=== PATIENT | female | born 1995 | race American Indian/Alaskan Native ===

== ENCOUNTER 2017-03-29 08:10 | Outpatient (CLI) | payer MEDICAID ==
[2017-03-29 08:28] VITALS: BP 107/69
[2017-03-29] MEDS ORDERED: LACTATED RINGERS 500 ML IV ONE (08:36)
[2017-03-29] MEDS ORDERED: BRETHINE SUB-Q SCH (09:00)
[2017-03-29 09:03] LABS: Urine Drugs of Abuse Note Disclamer
[2017-03-29 09:28] LABS: Bilirubin,Urine NEG (Negative); Blood,Urine NEG (Negative); Ketones,Urine 20 mg/dL (Negative); Leukocyte Esterase,Urine NEG (Negative); Mucus,Urine FEW /HPF; Nitrite,Urine NEG (Negative); Protein,Urine <15 mg/dL mg/dL (Negative); Urobilinogen,Urine < 2.0 mg/dL (<2.0)
[2017-03-29] MEDS ORDERED: NORCO 5/325 PO PRN (09:51)
[2017-03-29] MEDS ORDERED: PEPCID IV SCH (10:00)
[2017-03-29] MEDS ORDERED: LACTATED RINGERS 1,000 ML IV SCH (11:00)
== END 2017-03-29 11:13 | disposition home or self-care (01) ==
LOC: TRG 08:10
PROVIDERS: ATTEND Obstetrics & Gynecology
DX: O47.03 False labor before 37 completed weeks of gestation, third trimester (principal); Z3A.31 31 weeks gestation of pregnancy
CPT/HCPCS: 59025; 80307; 81001; 96360; 96361; 96374; J7120

== ENCOUNTER 2017-09-26 22:51 | Emergency (ER) | payer MEDICAID ==
[2017-09-27 00:03] LABS: Alanine Aminotransferase 10 units/L (7-56); Albumin 4.4 g/dL (3.9-5); Albumin/Globulin Ratio 1.8 %; Alkaline Phosphatase 67 units/L (35-129); Anion Gap 19 mmol/L; BUN/Creatinine Ratio 27; Bilirubin,Total < 0.20 mg/dL (0.1-1.2); Blood Urea Nitrogen 19 mg/dL (7-17); Calcium 9.5 mg/dL (8.4-10.2); Carbon Dioxide 25 mmol/L (22-30); Chloride 100.9 mmol/L (98-107); Glucose 82 mg/dL (65-100); Potassium 4.5 mmol/L (3.6-5.0); Sodium 140 mmol/L (137-145); Total Protein 6.9 g/dL (6.3-8.2)
[2017-09-27 00:13] LABS: Urine Drugs of Abuse Note Disclamer
[2017-09-27 00:55] LABS: Eosinophils % (Auto) 4.8 % (0.0-4.3); Mean Corpuscular HGB Conc 30 % (30-34); Platelet Count 384 K/mm3 (140-440); Red Blood Count 4.69 M/mm3 (3.65-5.03); Red Cell Distribution Width 17.8 % (13.2-15.2); White Blood Count 9.5 K/mm3 (4.5-11.0)
[2017-09-27 00:57] LABS: Hemoglobin 9.3 gm/dl (10.1-14.3)
[2017-09-27 00:58] LABS: Hematocrit 31.1 % (30.3-42.9); Mean Corpuscular Hemoglobin 20 pg (28-32); Mean Corpuscular Volume 66 fl (79-97)
[2017-09-27 01:23] LABS: Bacteria,Urine 2+ /HPF (Negative); Bilirubin,Urine NEG (Negative); Blood,Urine LG (Negative); Ketones,Urine NEG (Negative); Leukocyte Esterase,Urine MOD (Negative); Mucus,Urine 3+ /HPF; Nitrite,Urine POS (Negative); Urobilinogen,Urine < 2.0 mg/dL (<2.0)
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
[2017-09-27] MEDS ORDERED: MACROBID PO ONE (06:05)
[2017-09-27] MEDS ORDERED: NACL 0.9% 1000 ML 1,000 ML IV ONE (06:05)
[2017-09-27] MEDS ORDERED: XYLOCAINE 1% MPF 5 mL INFILTRATI ONE (06:05)
[2017-09-27] MEDS ORDERED: ROCEPHIN 500 MG in NACL 0.9% 50 ML IV ONE (07:00)
--- NOTE | 2017-09-27 11:43 | Consultation ---
History of Present Illness - Reason for Consult Consult date: 09/27/17 Reason for consult: Mental Health Evaluation Requesting physician: AYALA KINGSLEY - Chief Complaint Chief complaint: "I was just talking" - History of Present Psychiatric Illness 22 yo female who gave in May 2017 here for evaluation of post- depression. Today patient is calm and cooperative during the assessment. She stated that she did make a statement about throwing her baby away. She stated that she was "upset" when she made that statement. She stated that she told her mother that over a month ago, not recently. She stated that she been dealing with stress prior to the of her child (May 2017). She stated that life stressors (relationship issues, lack of money, and being unemployed) has made her life "hell." She stated that her child resides with her mother because she needs to get on her "feet." She did state that she don't know what to do when the child cries, which stresses her out. She stated being overwhelmed with life since the age of 21. She denies SI/HI's and AVH's. She denies sleep disturbance and a poor appetite. She rate her depression 6/10, with 10 being the worse. She admitted to smoking marijuana in the past, but denies alcohol consumption (etoh) . Medications and Allergies Allergies Allergy/AdvReac Type Severity Reaction Status Date / Time No Known Allergies Allergy Verified 08/05/15 20:45 Home Medications Medication Instructions Recorded Confirmed Last Taken Type No Known Home Medications [No 09/26/17 09/26/17 Unknown History Reported Home Medications] Past psychiatric history - Past Medical History Past Medical History: No medical history, other Past Surgical History: No surgical history - past Psychiatric treatment and history psychiatric treatment history: Denies a psy hx and fam psy hx. Mental Status Exam - Vital signs Last Vital Signs Temp 97.9 F 09/26/17 23:59 Pulse 82 09/26/17 23:59 Resp 18 09/26/17 23:59 BP 113/67 09/26/17 23:59 Pulse Ox 100 09/26/17 23:59 - Exam Narrative exam: MSE: Appearance: calm, cooperative Behavior: regular eye contact Speech: regular rate and tone Mood: "okay" Affect: flat Thought Process: circumstantial Thought Content: denies SI/HI's and AVH's Motor Activity: ambulatory Cognition: A/O x3 Insight: variable Judgment: variable Results Result Diagrams: 09/26/17 23:31 09/26/17 23:31 Abnormal lab results 09/26/17 09/26/17 09/26/17 Range/Units 23:21 23:31 23:31 Hgb 9.3 L (10.1-14.3) gm/dl MCV 66 L (79-97) fl MCH 20 L (28-32) pg RDW 17.8 H (13.2-15.2) % [place] % (Auto) 10.7 H (0.0-7.3) % Eos % (Auto) 4.8 H (0.0-4.3) % [place] # 1.0 H (0.0-0.8) K/mm3 Eos # 0.5 H (0.0-0.4) K/mm3 BUN 19 H (7-17) mg/dL Urine WBC (Auto) 89.0 H (0.0-6.0) /HPF U Epithel Cells (Auto) 28.0 H (0-13.0) /HPF Salicylates (2.8-20.0) mg/dL 09/26/17 Range/Units 23:31 Hgb (10.1-14.3) gm/dl MCV (79-97) fl MCH (28-32) pg RDW (13.2-15.2) % [place] % (Auto) (0.0-7.3) % Eos % (Auto) (0.0-4.3) % [place] # (0.0-0.8) K/mm3 Eos # (0.0-0.4) K/mm3 BUN (7-17) mg/dL Urine WBC (Auto) (0.0-6.0) /HPF U Epithel Cells (Auto) (0-13.0) /HPF Salicylates < 0.3 L (2.8-20.0) mg/dL All other labs normal. Assessment and Plan Assessment and plan: Impression: MDD. Today patient is calm and cooperative during the assessment. DDx: R/O Bipolar, Depression Recommendation/Plan: Continue 1013 with placement to [facility] today. Recommended to Third Mate to see if there's an pending case with DF reference this patient.
[2017-09-27 14:53] VITALS: BP 98/50
== END 2017-09-27 13:50 | disposition other institution (70) ==
LOC: ED 22:51 → EEVIPCON 22:51 → ED 09-27 13:50
DX: F32.9 Major depressive disorder, single episode, unspecified (principal); N30.00 Acute cystitis without hematuria
CPT/HCPCS: 36415; 80053; 80307; 81001; 81025; 82550; 84702; 85025; 96365; 99285; G0480; J0696; J7030; 80320

== ENCOUNTER 2018-02-23 16:48 | Emergency (ER) | payer MEDICAID ==
[2018-02-23 17:36] LABS: HCG Qualitative,Urine Negative (Negative)
[2018-02-23] MEDS ORDERED: TETRACAINE 0.5% OU ONE (21:53)
[2018-02-23] MEDS ORDERED: FUL-GLO OP ONE (21:54)
[2018-02-23] MEDS ORDERED: VIGAMOX OU ONE (22:28)
--- NOTE | 2018-02-23 22:36 | Emergency Department Report ---
Eye Injury/Foreign Body - HPI Duration: Today Eye Location: Left Severity: Severe Tetanus Status: Unknown Eye Symptoms: Eye Pain: Yes, Blurred Vision: No, Eye Redness: Yes, Grinding/ Hammering Metal: No, Used Eye Protection: No, Contact Lens Use: No, Recalls Injury: Yes, Photophobia: Yes Other History: Patient said about 4 AM she hit her left eye on a bedside stand. Since then she as been having pain at the site. ED Review of Systems ROS: Stated complaint: LEFT EYE PAIN Other details as noted in HPI Comment: All other systems reviewed and negative ED Past Medical Hx - Past Medical History Hx Hypertension: No Hx Congestive Heart Failure: No Hx Diabetes: No Hx Deep Vein Thrombosis: No Hx Renal Disease: No Hx Sickle Cell Disease: No Hx Seizures: No Hx Asthma: No Hx COPD: No Hx HIV: No Additional medical history: ADHD - Social History Smoking Status: Never Smoker Substance Use Type: None - Medications Home Medications: Home Medications Medication Instructions Recorded Confirmed Last Taken Type Moxifloxacin 0.5% [Vigamox] 1 drops OU Q8H #1 bottle 02/23/18 Unknown Rx Eye Injury Exam - Exam General: Vital signs noted. No distress. Alert and acting appropriately. - Visual Acuity Bilateral Eye Exam: Left Injection, Left Fluorescein Uptake (at about 2200 on the cornea of the left eye), Left Photophobia ED Course Vital Signs 02/23/18 02/23/18 02/23/18 17:01 19:58 20:00 Temperature 98.2 F Pulse Rate 99 H 83 96 H Respiratory 18 12 11 L Rate Blood Pressure 133/83 119/75 116/78 O2 Sat by Pulse 100 100 100 Oximetry 02/23/18 02/23/18 02/23/18 20:45 21:00 22:00 Temperature Pulse Rate 97 H 97 H Respiratory 16 16 Rate Blood Pressure 113/72 118/78 O2 Sat by Pulse 99 100 100 Oximetry Critical care attestation.: If time is entered above; I have spent that time in minutes in the direct care of this critically ill patient, excluding procedure time. ED Disposition Clinical Impression: Corneal abrasion Disposition: DC-01 TO HOME OR SELFCARE Is pt being admited?: No Does the pt Need Aspirin: No Condition: Stable Instructions: Corneal Abrasion (ED) Prescriptions: Moxifloxacin 0.5% [Vigamox] 1 drops OU Q8H #1 bottle Referrals: FINN COLLADO MD [Primary Care Provider] - 3-5 Days MARCELO GLEZ MD [Staff Physician] - 24 Hours (corneal abrasion) Time of Disposition: 22:38 Print Language: HUNGARIAN
[2018-02-23 23:14] VITALS: BP 104/64
== END 2018-02-23 23:15 | disposition home or self-care (01) ==
LOC: ED 16:48
DX: S05.02XA Injury of conjunctiva and corneal abrasion without foreign body, left eye, initial encounter (principal); X58.XXXA Exposure to other specified factors, initial encounter; Y93.89 Activity, other specified; Y92.89 Other specified places as the place of occurrence of the external cause; Y99.8 Other external cause status
CPT/HCPCS: 81025; 99283

== ENCOUNTER 2018-08-16 14:31 | Emergency (ER) | payer MEDICAID ==
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
[2018-08-16 21:40] VITALS: BP 118/68
== END 2018-08-16 21:38 | disposition home or self-care (01) ==
LOC: ED 14:31
DX: B85.0 Pediculosis due to Pediculus humanus capitis (principal); F90.9 Attention-deficit hyperactivity disorder, unspecified type
CPT/HCPCS: 99282

== ENCOUNTER 2021-06-06 17:49 | Emergency (ER) | payer MEDICAID ==
[2021-06-06 20:48] VITALS: BP 123/64
[2021-06-06] MEDS ORDERED: LIDOCAINE-MPF (1%) 10 MG/1 ML VIAL 5 ML INFILTRATI ONE (22:51)
--- NOTE | 2021-06-06 23:02 | Emergency Department Report ---
ED Female HPI - General Chief complaint: Urogenital-Female Stated complaint: STD CHECK UP, ITCHING Time Seen by Provider: 06/06/21 22:14 Source: patient Mode of arrival: Ambulatory Limitations: No Limitations - History of Present Illness MD Complaint: vaginal discharge (Yellow-green vaginal discharge), dysuria, possible STD -: Gradual Location: suprapubic Radiation: non-radiating Severity: mild Quality: burning Consistency: constant Improves with: none Worsens with: urination Are you Now?: Yes Associated Symptoms: vaginal discharge, dysuria. denies: abdominal pain, nausea/vomiting, headaches, loss of appetite, hematuria, shortness of breath, syncope - Related Data Sexually active: No Previous Rx's Medication Instructions Recorded Last Taken Type Moxifloxacin 0.5% 1 drops OU Q8H #1 bottle 02/23/18 Unknown Rx Permethrin [Nix LIQUID] 60 ml TP ONCE #1 bottle 08/16/18 Unknown Rx Ibuprofen [Motrin] 600 mg PO Q8H PRN #30 tablet 04/09/21 Unknown Rx Ondansetron [Zofran Odt] 4 mg PO Q6HR PRN #15 tab.rapdis 04/09/21 Unknown Rx Sulfamethoxazole/Trimethoprim 1 each PO Q12H #20 tablet 04/09/21 Unknown Rx [Bactrim DS TAB] DOXYCYCLINE Hyclate [Vibramycin 100 mg PO Q12HR #20 capsule 06/06/21 Unknown Rx CAP] Allergies Allergy/AdvReac Type Severity Reaction Status Date / Time No Known Allergies Allergy Verified 04/08/21 18:39 ED Review of Systems ROS: Stated complaint: STD CHECK UP, ITCHING Other details as noted in HPI Comment: All other systems reviewed and negative ED Past Medical Hx - Past Medical History Hx Hypertension: No Hx Congestive Heart Failure: No Hx Diabetes: No Hx Deep Vein Thrombosis: No Hx Renal Disease: No Hx Sickle Cell Disease: No Hx Seizures: No Hx Asthma: No Hx COPD: No Hx HIV: No Additional medical history: ADHD - Social History Smoking Status: Never Smoker - Medications Home Medications: Home Medications Medication Instructions Recorded Confirmed Last Taken Type Moxifloxacin 0.5% 1 drops OU Q8H #1 bottle 02/23/18 Unknown Rx Permethrin [Nix LIQUID] 60 ml TP ONCE #1 bottle 08/16/18 Unknown Rx Ibuprofen [Motrin] 600 mg PO Q8H PRN #30 tablet 04/09/21 Unknown Rx Ondansetron [Zofran Odt] 4 mg PO Q6HR PRN #15 tab.rapdis 04/09/21 Unknown Rx Sulfamethoxazole/Trimethoprim 1 each PO Q12H #20 tablet 04/09/21 Unknown Rx [Bactrim DS TAB] DOXYCYCLINE Hyclate [Vibramycin 100 mg PO Q12HR #20 capsule 06/06/21 Unknown Rx CAP] ED Physical Exam - General Limitations: No Limitations General appearance: alert, in no apparent distress - Head Head exam: Present: atraumatic, normocephalic - Eye Eye exam: Present: normal appearance, PERRL, EOMI Pupils: Present: normal accommodation - ENT ENT exam: Present: normal exam, normal orophraynx, mucous membranes moist, TM's normal bilaterally - Neck Neck exam: Present: normal inspection, full ROM - Respiratory Respiratory exam: Present: normal lung sounds bilaterally. Absent: respiratory distress, wheezes, rales, chest wall tenderness, accessory muscle use - Cardiovascular Cardiovascular Exam: Present: regular rate, normal rhythm. Absent: systolic murmur, diastolic murmur, rubs, gallop - GI/Abdominal GI/Abdominal exam: Present: soft, normal bowel sounds - Extremities Exam Extremities exam: Present: normal inspection, full ROM, normal capillary refill - Back Exam Back exam: Present: normal inspection. Absent: CVA tenderness (R), CVA tenderness (L) - Neurological Exam Neurological exam: Present: alert, oriented X3, CN II-XII intact, normal gait - Psychiatric Psychiatric exam: Present: normal affect, normal mood - Skin Skin exam: Present: warm, dry, intact, normal color. Absent: rash ED Course Vital Signs 06/06/21 20:44 Temperature 99.2 F Pulse Rate 63 Respiratory 18 Rate Blood Pressure 123/64 O2 Sat by Pulse 98 Oximetry ED Medical Decision Making - Medical Decision Making 26-year-old [place] female is emerged from complaining of vaginal discharge of yellowish and green in nature and some dysuria and slight burning in the area assess very suspicious of having an STD. Reports no pelvic pain reports no fever, chills, sweats reports no hematuria no dysuria no coryza. Examination presents with dysuria and discharge and history consistent with possible STD pain differential includes a cystitis, pyelonephritis, vaginitis, UTI. Will treat patient with Zithromax doxycycline Critical care attestation.: If time is entered above; I have spent that time in minutes in the direct care of this critically ill patient, excluding procedure time. ED Disposition Clinical Impression: Dysuria, STD (sexually transmitted disease) Disposition: TO HOME OR SELFCARE Is pt being admited?: No Does the pt Need Aspirin: No Condition: Stable Instructions: Dysuria, Safe Sex, Chlamydia, Female Prescriptions: DOXYCYCLINE Hyclate [Vibramycin CAP] 100 mg PO Q12HR #20 capsule Referrals: [facility]LY [facility] MD SALAS [Primary Care Provider] - 3-5 Days
== END 2021-06-07 00:20 | disposition home or self-care (01) ==
LOC: ED 17:49
DX: A64 Unspecified sexually transmitted disease (principal); R30.0 Dysuria
CPT/HCPCS: 96372; 99282; J0696